=== PATIENT | female | born 1995 | race Asian ===

== ENCOUNTER 2023-12-22 06:20 | Outpatient (REF) | payer OTHER, SELFPAY ==
--- NOTE | ~2023-12-22 | US_ITS ---
EXAMINATION: US ABDOMEN COMPLETE CLINICAL INFORMATION: Abdominal pain. COMPARISON: None available. TECHNIQUE: Real-time imaging of the abdominal viscera. FINDINGS: PANCREAS: Normal. ABDOMINAL AORTA: The proximal, mid, and distal segments are normal in caliber. INFERIOR VENA CAVA: Visualized portions are normal. LIVER: Normal. The liver is normal in size. The liver contour is normal. Parenchymal echogenicity is normal. No focal hepatic lesion. There is no intrahepatic biliary duct dilatation seen. GALLBLADDER: Normal. The gallbladder is physiologically distended without evidence of stones, sludge, polyps, wall thickening or pericholecystic fluid. COMMON BILE DUCT: Normal in caliber measuring 0.21 cm in diameter. RIGHT KIDNEY: Normal. No hydronephrosis. No renal calculi or focal parenchymal lesions. The kidney measures 10.0 cm in maximum dimension. LEFT KIDNEY: Normal. No hydronephrosis. No renal calculi or focal parenchymal lesions. The kidney measures 9.7 cm in maximum dimension. SPLEEN: Normal. The spleen measures 8.3 cm in maximum dimension. FREE FLUID: None. US/US abdomen complete IMPRESSION: Unremarkable abdominal ultrasound. Electronically signed by: Priscilla Bueno MD 01/11/2024 06:20 PM EDT
== END 2023-12-22 06:21 | disposition home or self-care (01) ==
LOC: HO.UMASIMG 06:20
PROVIDERS: Visit Provider Family Medicine
DX: R10.9 Unspecified abdominal pain (principal); K21.9 Gastro-esophageal reflux disease without esophagitis
CPT/HCPCS: 76700

== ENCOUNTER 2024-08-14 19:08 | Emergency (ER) | payer OTHER, SELFPAY ==
--- NOTE | 2024-08-14 19:09 | ED_ITS ---
HPI - General Adult General Chief complaint: Nausea/Vomiting/Diarrhea Stated complaint: vomiting, fainted Time Seen by Provider: 08/14/24 20:19 Source: patient Limitations: no limitations History of Present Illness ED Provider: Mague Narayanan PA-C HPI narrative: 29-year-old female presents with nausea vomiting since earlier today. 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 Patient had 3 episodes of vomiting prior to arrival. Associated syncopal episode while vomiting. Denies recent cough or cold symptoms, diarrhea, abdominal pain or fever. No sick contacts with similar symptoms. No preceding chest pain, palpitations or shortness of breath. Related Data Previous Rx's ?Medication ?Instructions ?Recorded ondansetron HCl 4 mg tablet 4 mg PO Q8H PRN nausea and 08/15/24 vomiting #10 tabs sucralfate 100 mg/mL oral 10 ml PO QID PRN GERD #300 mL 08/15/24 suspension (Carafate) Allergies Allergy/AdvReac Type Severity Reaction Status Date / Time No Known Allergies Allergy Verified 08/14/24 19:27 Review of Systems 2 Review of Systems: Yes all other systems are reviewed and are negative Constitutional: Constitutional: Denies fatigue and Denies fever(s) Cardiovascular: Cardiovascular: Denies chest pain, Reports syncope and Denies dyspnea Respiratory: Respiratory: Denies dyspnea Gastrointestinal: Gastrointestinal: Denies abdominal pain, Denies diarrhea, Reports nausea and Reports vomiting Neurologic: Reports syncope Endocrine: Endocrine: Denies fatigue [facility] Past Medical History Attestation statement: The following information was validated with the patient. Social History Social History Advance Directives: No Advance Directives Information Provided: No Do you have a plan to hurt others: No Plan Physical Exam ED Vital Signs: Vital Signs - 24 hr 08/14/24 19:14 08/14/24 20:15 08/14/24 22:27 Temperature 98.1 F 98.1 F 98.8 F Pulse Rate 61 57 63 Respiratory Rate 16 18 16 Blood Pressure 94/47 L 93/49 L 114/60 Pulse Oximetry 98 100 100 Oxygen Delivery Method Room Air Room Air Room Air BMI result Body Mass Index 19.8 Const Other: Alert Orientation/consciousness: patient oriented x3 Resp Effort & Inspection: normal respiratory effort Cardio Other: Normal peripheral perfusion GI Other: Abdomen nondistended nontender no guarding Skin Other: Warm dry no rash Neuro General: patient oriented x3, gait normal, no focal motor deficits and CN's II- XI intact bilaterally Psych Other: Cooperative somewhat anxious Course Course Course Narrative: This is a rapid medical exam performed by Adelaida Quintanilla NP: Additional HPI, ROS, PE not included below will be deferred to primary provider. Patient is a 29-year-old female with history of GERD presenting after syncopal episode, had nausea and vomiting today, headache. Patient drowsy in triage. Plan: POC glucose, EKG, labs, viral panel Medications Administered Discontinued Medications Generic Name Dose Route Start Last Admin Trade Name Freq PRN Reason Stop Dose Admin Dexamethasone Sodium Phosphate 10 mg 08/14/24 20:37 08/14/24 22:12 Dexamethasone Sod Phosphate 10 Mg/Ml Vial IVPUSH 08/14/24 20:38 Not Given ONCE ONE Diphenhydramine HCl 25 mg 08/14/24 20:37 08/14/24 22:03 Diphenhydramine Hcl 50 Mg/Ml Vial IVPUSH 08/14/24 20:38 25 mg ONCE ONE Administration Sodium Chloride 1,000 mls @ 999 mls/hr 08/14/24 20:30 08/14/24 20:32 Ns IV 08/14/24 21:30 999 mls/hr .Q1H1M BETH Administration Ketorolac Tromethamine 15 mg 08/14/24 20:37 08/14/24 21:55 Ketorolac Tromethamine 15 Mg/Ml Vial IVPUSH 08/14/24 20:38 15 mg ONCE ONE Administration Prochlorperazine Edisylate 10 mg 08/14/24 20:37 08/14/24 21:58 Prochlorperazine Edisylate 10 Mg/2 Ml Vial IVPUSH 08/14/24 20:38 10 mg ONCE ONE Administration Procedures Procedure Narrative Procedure Narrative: Ultrasound-guided IV 18 gauge 1-3/4 inch IV placed in left upper extremity. Adequate blood return flushes well secured with Tegaderm Medical Decision Making Medical Decision Making MDM Narrative: 29-year-old female presents with nausea vomiting since earlier today. 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 Patient had 3 episodes of vomiting prior to arrival. Associated syncopal episode while vomiting. Denies recent cough or cold symptoms, diarrhea, abdominal pain or fever. No sick contacts with similar symptoms. No preceding chest pain, palpitations or shortness of breath. No relevant chronic issues History: Per patient I have considered the following differential diagnoses: Vasovagal syncope, viral gastroenteritis, acute intra-abdominal pathology, anxiety Plan: Patient readily admits that she is extremely anxious, and that she often has GI upset associated with stress. In regard to the syncopal episode, this is classic vasovagal syncope in the setting of vomiting and underlying anxiety. Doubtful to be viral gastroenteritis given no sick contacts, no fevers, no preceding viral syndrome. She does not require imaging her abdominal exam was benign and she is not complaining of abdominal pain. We will screen basic labs and a viral. We will be giving fluid and antiemetic. I have independently reviewed the following tests: Labs: No leukocytosis, not anemic, no electrolyte abnormalities noted, not , viral panel neg Lab Data 08/14/24 19:24 08/14/24 19:24 Labs: Lab Results 08/14/24 08/14/24 Range/Units 19:23 19:24 WBC 9.1 (4.8-10.8) X10*3/uL RBC 4.10 L (4.20-5.50) X10*6/uL Hgb 12.3 (12.0-16.0) g/dl Hct 35.5 L (37.0-47.0) % MCV 86.6 (80.0-98.0) fL MCH 30.0 (27.0-33.0) pg MCHC 34.6 (31.0-35.0) g/dl RDW 12.4 (11.0-16.0) % Plt Count 303 (160-400) X10*3/uL MPV 9.1 L (9.4-12.3) fL Immature Gran % (Auto) 0.3 (0.0-0.4) % Neut % (Auto) 73.8 H (45-73) % Lymph % (Auto) 20.6 (20-40) % [place] % (Auto) 4.3 (2-11) % Eos % (Auto) 0.3 (0-4) % Baso % (Auto) 0.7 (0-2) % Lymph # (Auto) 1.9 (1.2-4.9) X10*3/uL [place] # (Auto) 0.4 (0.1-1.2) X10*3/uL Eos # (Auto) 0.0 (0.0-0.4) X10*3/uL Baso # (Auto) 0.1 (0.0-0.2) X10*3/uL Abs Immat Gran (auto) 0.03 (0.00-0.03) X10*3/uL Absolute Neuts (auto) 6.7 (2.0-8.3) x10*3/uL Absolute Nucleated RBC 0.000 (0.0-0.012) X10*3/uL Nucleated RBC % (auto) 0.0 (0.0-0.2) /100WBC Sodium 137 (135-145) mmol/L Potassium 3.3 (3.3-5.1) mmol/L Chloride 109 H (96-108) mmol/L Carbon Dioxide 19 L (22-29) mmol/L Anion Gap 12 (12-20) BUN 8 L (9-16) mg/dL Creatinine 0.57 (0.5-1.4) mg/dL Estim Creat Clear Calc 113.6 Estimated GFR > 60 POC Glucose 84 (60-115) mg/dL Random Glucose 94 (60-115) mg/dL Calcium 9.2 (8.4-10.2) mg/dL Magnesium 1.8 (1.6-2.6) mg/dL Total Bilirubin 0.3 (0.0-1.0) mg/dL AST 22 (5-31) U/L ALT 10 (0-31) U/L Alkaline Phosphatase 53 (39-117) U/L Total Protein 7.4 (6.5-8.0) g/dL Albumin 4.2 (3.5-5.0) g/dL Beta HCG, Quant < 2 mIU/mL Influenza Type A (PCR) NEGATIVE (Negative) Influenza Type B (PCR) NEGATIVE (Negative) RSV RNA Qual (PCR) NEGATIVE (Negative) SARS-CoV-2 RNA (RT-PCR) NEGATIVE (Negative) Discharge Plan Discharge Clinical Impression: Nausea & vomiting Patient Disposition: Home, Self-Care Instructions: Acute Nausea and Vomiting (ED) Additional Instructions: You were treated for acute nausea vomiting. See home care instructions. Uses Zofran as needed for nausea. Use the Carafate as needed for upper abdominal discomfort associated with your acid reflux. Follow up with your primary care provider as needed. To note you had no lab abnormalities, you were not clinically dehydrated. Prescriptions: New sucralfate [Carafate] 100 mg/mL suspension 10 ml PO QID PRN (Reason: GERD) Qty: 300 0RF Rx Instructions: swish in mouth and swallow; use after food/drink ondansetron HCl 4 mg tablet 4 mg PO Q8H PRN (Reason: nausea and vomiting) Qty: 10 0RF Stand Alone Forms: Work/School Release Interventions: ED Discharge Assessment Last Done: 08/15/24 00:48 Discharge Date/Time: 08/15/24 00:48 Print Language: Dutch
--- NOTE | 2024-08-14 19:12 | ECG_ITS ---
Test Reason : WEAK Blood Pressure : */* mmHG Vent. Rate : 60 BPM Atrial Rate : 60 BPM P-R Int : 138 ms QRS Dur : 84 ms QT Int : 436 ms P-R-T Axes : 57 84 46 degrees QTcB Int : 436 ms Normal sinus rhythm with sinus arrhythmia Normal ECG No previous ECGs available Referred By: Generic ED Physician Electronically Signed By: ABHI HAIR MD
[2024-08-14 19:14] VITALS: BP 94/47; PULSE 61; RESP 16; TEMP 36.7; O2SAT 98; BMI 19.8
[2024-08-14 19:29] LABS: Glucose, Whole Blood 84 mg/dL (60-115)
[2024-08-14 19:31] LABS: MANUAL DIFF FLAG NO
[2024-08-14 19:35] LABS: Basophils Absolute Auto 0.1 X10*3/uL (0.0-0.2); Basophils Percent Auto 0.7 % (0-2); Eosinophils Percent Auto 0.3 % (0-4); Hematocrit 35.5 % (37.0-47.0); Hemoglobin 12.3 g/dl (12.0-16.0); Imm Gran Abs Auto 0.03 X10*3/uL (0.00-0.03); Imm Gran Pct Auto 0.3 % (0.0-0.4); Lymphocytes Absolute Auto 1.9 X10*3/uL (1.2-4.9); Lymphocytes Percent Auto 20.6 % (20-40); Mean Corpuscular HGB Conc 34.6 g/dl (31.0-35.0); Mean Corpuscular Volume 86.6 fL (80.0-98.0); Mean Platelet Volume 9.1 fL (9.4-12.3); Monocytes Absolute Auto 0.4 X10*3/uL (0.1-1.2); Monocytes Percent Auto 4.3 % (2-11); Neutrophils Absolute Auto 6.7 x10*3/uL (2.0-8.3); Neutrophils Percent Auto 73.8 % (45-73); Platelet Count 303 X10*3/uL (160-400); Red Cell Distribution Width 12.4 % (11.0-16.0); White Blood Count 9.1 X10*3/uL (4.8-10.8)
[2024-08-14 20:01] LABS: Alanine Aminotransferase 10 U/L (0-31); Albumin Level 4.2 g/dL (3.5-5.0); Alkaline Phosphatase 53 U/L (39-117); Anion Gap 12 (12-20); Aspartate Amino Transferase 22 U/L (5-31); Bilirubin Total 0.3 mg/dL (0.0-1.0); Blood Urea Nitrogen 8 mg/dL (9-16); Calcium 9.2 mg/dL (8.4-10.2); Carbon Dioxide 19 mmol/L (22-29); Chloride 109 mmol/L (96-108); Creatinine Clr Calc Pharmacy 113.6; Estimated Glomerular Filt Rate > 60; Glucose Random 94 mg/dL (60-115); Magnesium 1.8 mg/dL (1.6-2.6); Potassium 3.3 mmol/L (3.3-5.1); Sodium 137 mmol/L (135-145); Total Protein 7.4 g/dL (6.5-8.0)
[2024-08-14 20:04] LABS: HCG Quantitative < 2 mIU/mL
[2024-08-14 20:11] LABS: Influenza A PCR NEGATIVE (Negative); Influenza B PCR NEGATIVE (Negative); Resp Syncy Virus RNA Qual PCR NEGATIVE (Negative); SARS COV2 PCR INHOUSE NEGATIVE (Negative)
[2024-08-14 20:15] VITALS: BP 93/49; PULSE 57; RESP 18; TEMP 36.7; O2SAT 100
[2024-08-14] MEDS: 0.9 % Sodium Chloride 1,000 ML 999 ML IV (20:32)
[2024-08-14] MEDS: Ketorolac Tromethamine 15 MG/ML VIAL IVPUSH (21:55)
[2024-08-14] MEDS: Prochlorperazine Edisylate 10 MG/2 ML VIAL IVPUSH (21:58)
[2024-08-14] MEDS: diphenhydrAMINE HCL 50 MG/ML VIAL 25 MG IVPUSH (22:03)
[2024-08-14 22:27] VITALS: BP 114/60; PULSE 63; RESP 16; TEMP 37.1; O2SAT 100
[2024-08-15 00:48] VITALS: BP 100/54; PULSE 64; RESP 14; TEMP 36.9; O2SAT 100
== END 2024-08-15 00:48 | disposition home or self-care (01) ==
PROVIDERS: Registered Nurse Emergency; Emergency Provider Internal Medicine; PCP Family Medicine
DX: R11.2 Nausea with vomiting, unspecified (principal); R53.1 Weakness; Z03.818 Encounter for observation for suspected exposure to other biological agents ruled out
CPT/HCPCS: 0241U; 36415; 80053; 82947; 83735; 84702; 85025; 93005; 96374; 96375; 99284; J0737; J1200; J1885

== ENCOUNTER → 2024-08-14 19:12 | Outpatient (BNV) | payer OTHER, SELFPAY | PROVIDERS: Emergency Provider Internal Medicine; PCP Family Medicine; Visit Provider Internal Medicine Cardiovascular Disease | DX: R53.1 Weakness (principal) | CPT/HCPCS: 93010 ==